=== PATIENT | female | born 1970 ===

== ENCOUNTER 2018-01-28 20:59 | Emergency (ER) | payer SELFPAY ==
[2018-01-28 22:03] VITALS: RESP 18
[2018-01-28 22:57] LABS: BASO # 0.1 K/uL (0.0-0.2); EOS # 0.2 K/uL (0.0-0.7); EOS % 2.6 % (0.0-4.0); HEMOGLOBIN 11.9 g/dL (12.0-16.0); LYMPH # 1.9 K/uL (1.0-4.3); LYMPH % 31.7 % (20.0-40.0); MEAN CELL VOLUME 90.3 fl (81.0-99.0); MEAN CORPUSCULAR HGB CONC 33.2 g/dL (33.0-37.0); MEAN PLATELET VOLUME 8.2 fl (7.2-11.7); MONO # 0.6 K/uL (0.0-0.8); MONO % 10.4 % (0.0-10.0); NEUT # 3.3 K/uL (1.8-7.0); NEUT % 54.3 % (50.0-75.0); NRBC % 0.1 % (0.0-0.0); RBC 3.96 Mil/uL (3.80-5.20); RED CELL DISTRIBUTION WIDTH 15.3 % (11.5-14.5)
[2018-01-28 22:59] LABS: PROTHROMBIN TIME 11.4 Seconds (9.8-13.1)
[2018-01-28 23:01] LABS: PARTIAL THROMBOPLASTIN TIME 31.6 Seconds (25.6-37.1)
[2018-01-28 23:06] LABS: BLOOD UREA NITROGEN 13 mg/dl (7-17); GFR NON-AFRICAN AMERICAN > 60
--- NOTE | 2018-01-29 00:42 | ED PDOC ---
Lower Extremity Pain/Injury Time Seen by Provider: 01/28/18 22:10 Chief Complaint (Nursing): Weakness/Neurological Deficit Chief Complaint (Provider): numbness, tingling History Per: Patient History/Exam Limitations: no limitations Onset/Duration Of Symptoms: Hrs (x18) Additional Complaint(s): Julianne Pacheco, a 47 year old female who states she has no past medical history, presents to the emergency department with left foot numbness and tingling onset this morning. Patient states she woke up at 6 am and noticed that her left mid foot onwards was cold, numb and had a tingling sensation. She reports having difficulty walking because she felt she had to lift her whole leg to take a step. Patient denies injury, trauma, headache or any other symptoms. No further medical complaints. Past Medical History Reviewed: Historical Data, Nursing Documentation, Vital Signs Vital Signs: Last Vital Signs Temp 98.4 F 01/28/18 22:00 Pulse 74 01/28/18 22:00 Resp 18 01/28/18 22:00 BP 160/92 H 01/28/18 22:00 Pulse Ox 100 01/28/18 22:00 - Medical History PMH: No Chronic Diseases - Surgical History Surgical History: (x 1) - Family History Family History: States: Unknown Family Hx - Immunization History Hx Tetanus Toxoid Vaccination: No Hx Influenza Vaccination: No Hx Pneumococcal Vaccination: No - Home Medications Home Medications: Ambulatory Orders Medication Instructions Recorded Ibuprofen [Motrin] 600 mg PO Q6H PRN #20 tab 03/13/15 - Allergies Allergies/Adverse Reactions: Allergies Allergy/AdvReac Type Severity Reaction Status Date / Time No Known Allergies Allergy Verified 01/28/18 22:00 Review of Systems ROS Statement: Except As Marked, All Systems Reviewed And Found Negative Musculoskeletal: Positive for: Foot Pain (left, cold, numb, tingling) Neurological: Negative for: Headache Physical Exam - Reviewed Nursing Documentation Reviewed: Yes Vital Signs Reviewed: Yes - Physical Exam Appears: Positive for: Well, Non-toxic, No Acute Distress Head Exam: Positive for: ATRAUMATIC, NORMAL INSPECTION, NORMOCEPHALIC Cardiovascular/Chest: Positive for: Regular Rate, Rhythm Respiratory: Positive for: Normal Breath Sounds. Negative for: Respiratory D istress Extremity: Positive for: Capillary Refill (intact), Other (left foot, mid foot forwards is cool but no cold, normal color, able to plantar and dorsiflex, negative Pavinski, 2+ distal pulse bilaterally, sensation intact). 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 Provider Scribe Attestation: All medical record entries made by the Scribe were at my direction and personally dictated by me. I have reviewed the chart and agree that the record accurately reflects my personal performance of the history, physical exam, medical decision making, and the department course for this patient. I have also personally directed, reviewed, and agree with the discharge instructions and disposition. Disposition - Clinical Impression Clinical Impression: Peripheral vascular disease - Disposition Referrals: Podiatry Clinic [Outside] Disposition: Routine/Home Disposition Time: 00:50 Condition: GOOD Instructions: Peripheral Artery Disease and Claudication Forms: [employer] (Malay) Print Language: CZECH
[2018-01-29 00:52] VITALS: BP 116/76; PULSE 60; TEMP 98
[2018-01-29 04:24] VITALS: O2SAT 100
--- NOTE | 2018-01-29 06:27 | CP.PCM.CON ---
History of Present Illness - History of Present Illness History of Present Illness: Podiatry consult for Dr. Nuñez: 47 yo female with no significant pmhx seen and evaluated in ED for left foot numbness and inability to move ankle up and down. Patient is AAOx3 and NAD. States that this same issue has happened once before but was only in her left toes and it went away within a day. States that the symptoms she presents with today have been there since she got up in the morning and the feeling has not come back in her foot and she has not been able to point her toes to her nose for the whole day. She denies pain to her left foot and she says that she is not experiencing the same symptoms anywhere else in her body. She denies N/V/F/C/SOB/CP and has no other pedal complaints at this time. PMHx Denies PSHx All NKDA Past Patient History - Infectious Disease Hx of Infectious Diseases: None - Past Social History Smoking Status: Never Smoked - PSYCHIATRIC Hx Substance Use: No - SURGICAL HISTORY Hx Surgeries: No - ANESTHESIA Hx Anesthesia: No Meds Allergies/Adverse Reactions: Allergies Allergy/AdvReac Type Severity Reaction Status Date / Time No Known Allergies Allergy Verified 01/28/18 22:00 Physical Exam - Constitutional Appears: Well, Non-toxic, No Acute Distress - Head Exam Head Exam: ATRAUMATIC, NORMOCEPHALIC - Extremities Exam Additional comments: Vasc: DP and PT pulses are palpable 2/4; cap refill <3 seconds to all digits; no edema present to lower extremities b/l; temp gradient warm to cool from proximal to distal Derm: no lesions or open wounds present; mild erythema present at the dorsum of the left foot, likely from shoegear; no streaking or cellulitis; skin temp and turgor wnl; no clinical signs of infection Neuro: light touch and protective sensation intact Ortho: right foot has no significant pathology; LLE: no dorsiflexory strenght on MMT, minimal strength on inversion, eversion and plantarflexion are 5/5; no pain on palpation of the left foot; not contracted, mild equinus deformity present on passive ROM, on gait examination - patient picks up the left leg to compensate for foot drop and eliminate toe drag - Neurological Exam Neurological exam: Alert, Oriented x3 - Psychiatric Exam Psychiatric exam: Normal Affect, Normal Mood Results - Vital Signs Recent Vital Signs: Last Vital Signs Temp 98.0 F 01/29/18 00:51 Pulse 60 01/29/18 00:51 Resp 18 01/29/18 00:51 BP 116/76 01/29/18 00:51 Pulse Ox 100 01/29/18 04:23 - Labs Result Diagrams: 01/28/18 22:45 01/28/18 22:45 Labs: Laboratory Results - last 24 hr 01/28/18 01/28/18 01/28/18 22:45 22:45 22:45 WBC 6.0 RBC 3.96 Hgb 11.9 L Hct 35.7 MCV 90.3 MCH 30.0 MCHC 33.2 RDW 15.3 H Plt Count 288 MPV 8.2 Neut % (Auto) 54.3 Lymph % (Auto) 31.7 [place] % (Auto) 10.4 H Eos % (Auto) 2.6 Baso % (Auto) 1.0 Neut # (Auto) 3.3 Lymph # (Auto) 1.9 [place] # (Auto) 0.6 Eos # (Auto) 0.2 Baso # (Auto) 0.1 PT 11.4 INR 1.0 APTT 31.6 Sodium 140 Potassium 3.9 Chloride 110 H Carbon Dioxide 24 Anion Gap 10 BUN 13 Creatinine 0.5 L Est GFR ( Amer) > 60 Est GFR (Non-Af Amer) > 60 Random Glucose 101 Calcium 9.0 Assessment & Plan - Assessment and Plan (Free Text) Assessment: 47 yo female with no significant pmhx seen and evaluated in the ED for left foot drop Plan: Patient seen and evaluated Discussed in detail with Dr. Nuñez X-rays of left foot taken - no pathology noted Discussed with patient diagnosis of potential foot drop Told patient that she will need a neurology consult Instructed to follow up in podiatry clinic to dispense outside consult Instructed to see primary care physician regularly as she has not seen one in years Told that splint will be applied and assistive devices can be dispensed but patient refused, wants to wear normal shoe home Told to continue at home medication of aspirin once daily Will follow up in podiatry clinic with Dr. Nuñez Thank you for the consult - Date & Time Date: 01/28/18 Time: 22:35
--- NOTE | 2018-01-29 12:01 | RAD ---
Date of service: 01/28/2018 PROCEDURE: Left Foot Radiographs. HISTORY: foot numbness COMPARISON: None. FINDINGS: BONES: Normal. No fracture. JOINTS: Normal. SOFT TISSUES: Normal. OTHER FINDINGS: None. IMPRESSION: Normal left foot radiographs.
== END 2018-01-29 01:40 | disposition home or self-care (01) ==
LOC: H.ER 20:59
DX: I73.9 Peripheral vascular disease, unspecified (principal)